=== PATIENT | female | born 1995 | race Caucasian/White ===

== ENCOUNTER → 2019-03-30 | Outpatient (CLI) | payer OTHER ==
--- NOTE | 2019-03-30 22:09 | MR ---
EXAMINATION TYPE: MR brain wo con DATE OF EXAM: 03/30/2019 COMPARISON: NONE HISTORY: Migraine TECHNIQUE: Multiplanar, multisequence imaging of the brain and brainstem is performed without IV cont rast. FINDINGS: Diffusion weighted images demonstrate no evidence of a recent infarct or other diffusion abnormality. There is no extraaxial fluid collection or significant white matter signal abnormality. The ventricu lar system and cisternal spaces are normal in size and appearance. The brain volume is age appropria te. Midline structures demonstrate normal morphology. The craniocervical junction appears within normal limits. Normal vascular flow voids are present. Incidental dominant right vertebral artery. Mild to m oderate mucosal thickening involving the maxillary sinuses bilaterally. Moderate mucosal thickening i nvolving the ethmoid sinuses bilaterally greatest anteriorly. Mild mucosal thickening involving the r ight frontal sinus. IMPRESSION: Chronic paranasal sinus disease as detailed above otherwise unremarkable study.
== END | disposition home or self-care (01) ==
LOC: RADMRIMAIN 15:44
PROVIDERS: ATTEND Family Medicine
DX: G43.909 Migraine, unspecified, not intractable, without status migrainosus (principal)
CPT/HCPCS: 70551

== ENCOUNTER → 2020-05-17 | Outpatient (CLI) | payer OTHER ==
--- NOTE | 2020-05-17 16:09 | US ---
EXAMINATION TYPE: Transabdominal DATE OF EXAM: 05/17/2020 8:02 AM COMPARISON: NONE CLINICAL HISTORY: Z36 confrim dates. confirm dates EXAM PERFORMED: Transvaginal (TV) and Transabdominal (TA) EXAM MEASUREMENTS: GESTATIONAL AGE / DATING Physician Established: Not yet established Dates by LMP: (9 weeks/2 days) EDC: 12/18/20 Dates by First Scan: No previous this is first scan Dates by Current Scan for: (8 weeks/5 days) EDC: 12/22/20 MATERNAL ANATOMY Uterus: 11.1 x 5.8 x 6.2cm Right Ovary: 2.3 x 1.7 x 1.4cm Left Ovary: 3.8 x 2.7 x 3.0cm Post CDS / Adnexa: appears wnl Presence of free fluid: no Presence of corpus luteal cyst: cystic area left ovary = 2.8 x 2.2 x 2.5cm Presence of subchorionic bleed: anechoic area posterior to gestational sac = 1.2 x 2.1cm GESTATION / SURVEY CRL: 2.1cm (8 weeks/5 days) Yolk Sac (normal less than 6mm): 0.3cm Heart Rate: 163 bpm Rhythm: Normal IUP: Viable IUP Date of LMP: 03/13/20 Beta HcG (if available): Not available at this time IMPRESSION: 1. Single intrauterine gestation estimated at 8 weeks 5 days gestation based on crown-rump length. Ca rdiac activity measures 163 bpm. 2. Chorionic hemorrhage may be adjacent to the gestational sac
== END | disposition home or self-care (01) ==
LOC: RADUSWWP 07:03
PROVIDERS: ATTEND Obstetrics & Gynecology
DX: Z36.9 Encounter for antenatal screening, unspecified (principal); Z3A.08 8 weeks gestation of pregnancy
CPT/HCPCS: 76801; 76817

== ENCOUNTER → 2020-07-28 | Outpatient (CLI) | payer OTHER ==
--- NOTE | 2020-07-31 07:46 | US ---
EXAMINATION TYPE: US OB anatomy transabd DATE OF EXAM: 07/28/2020 COMPARISON: 05/17/2020 HISTORY: 24-year-old female O36.62X0 2nd Trimester-large for dates . Assessment of anatomy TECHNIQUE: Transabdominal (TA) FINDINGS: EXAM MEASUREMENTS: GESTATIONAL AGE / DATING Physician Established: (19 weeks/4 days) EDC: 12/18/2020 Dates by LMP: (19 weeks/4 days) EDC: 12/18/2020 Dates by Current Scan for: (19 weeks/1 days) EDC: 12/21/2020 SURVEY IUP: Single PLACENTA: Posterior PREVIA: No previa JARETT: 12.7 cm Normal CERVICAL LENGTH (transabdominal: norm > 3.0cm): 3.4 cm BIOMETRY PRESENTATION: Vertex BPD: 4.4 cm 19 weeks / 3 days HC: 16.2 cm 19 weeks / 0 days AC: 13.2 cm 18 weeks / 5 days FL: 3.0 cm 19 weeks / 2 days ESTIMATED WEIGHT IN GRAMS: 268 grams ESTIMATED WEIGHT IN LBS/OZ: 0 lbs. 9 oz. WEIGHT PERCENTAGE BASED ON ESTABLISHED DATE: 17 % HC/AC: 1.2 Normal FL/AC: 23% HEART RATE: 146 bpm RHYTHM: Normal ANATOMY SEEN (within normal limits): Lateral Vent (< 1 cm) 0.6 cm Cisterna Magna (< 1.1 cm) 0.3 cm Nuchal Fold (< 0.6 cm) 0.3 cm Cerebellum (varies with age) 1.9 cm Choroid Plexus (bilateral) Midline Falx Cavus Septi Pellucidi Four Chamber Heart Outflow tracts: LVOT/RVOT Stomach Situs Nose / Lips Diaphragm Kidneys (bilateral) Bladder Cord Insert Three Vessel Cord Longitudinal Spine Transverse Spine Arms (bilateral) Legs (bilateral) IMPRESSION: 1. Single live intrauterine with established gestational age of 19 weeks 4 days by LMP. Cur rent ultrasound biometry remains concordant (19 weeks 1 day). 2. JARETT 12.7 cm. EFW percent 17%. Follow-up as clinically indicated. 3. The survey is complete. The visualized anatomy appears normal.
== END | disposition home or self-care (01) ==
LOC: RADUSWWP 16:22
PROVIDERS: ATTEND Obstetrics & Gynecology
DX: O36.62X0 Maternal care for excessive fetal growth, second trimester, not applicable or unspecified (principal); Z3A.19 19 weeks gestation of pregnancy
CPT/HCPCS: 76811

== ENCOUNTER 2020-12-19 05:14 | Inpatient (IN) | payer OTHER ==
[2020-12-19] MEDS ORDERED: METHYLERGONOVINE 0.2 MG/ML 1 ML AMP IM PRN (06:19)
[2020-12-19] MEDS ORDERED: CARBOPROST TROMETHAMINE 250 MCG/ML 1 ML AMP IM PRN (06:19)
[2020-12-19] MEDS ORDERED: TERBUTALINE 1 MG/ML VIAL SQ PRN (06:19)
[2020-12-19] MEDS ORDERED: OXYTOCIN 10 UNIT/ML 1 ML VIAL IM PRN (06:19)
[2020-12-19] MEDS ORDERED: LIDOCAINE 0.5% (PF) 5 MG/ML (50 ML SDV) SQ PRN (06:19)
[2020-12-19] MEDS ORDERED: OXYTOCIN 30 UNITS/500 ML NS 30 UNIT in SALINE 1 500ML.BAG IV SCH ×2 (06:30→20:30)
[2020-12-19] MEDS: LACTATED RINGERS 1,000 ML IV SCH ×2 (06:31→23:07)
[2020-12-19 06:49] LABS: Basophils # (A) 0.1 k/uL (0-0.2); Basophils % (A) 0 %; Eosinophils # (A) 0.3 k/uL (0-0.7); Eosinophils % (A) 2 %; HCT 37.4 % (34.0-46.0); Lymphocytes # (A) 1.9 k/uL (1.0-4.8); Lymphocytes % (A) 14 %; MCH 27.7 pg (25.0-35.0); MCHC 32.2 g/dL (31.0-37.0); MCV 86.2 fL (80.0-100.0); Mean Platelet Volume 9.6; Monocytes # (A) 0.5 k/uL (0-1.0); Monocytes % (A) 4 %; Neutrophils # (A) 10.2 k/uL (1.3-7.7); Neutrophils % (A) 78 %; Platelet Count 264 k/uL (150-450); Poikilocytosis Slight; RBC 4.33 m/uL (3.80-5.40); RDW 13.4 % (11.5-15.5); WBC 13.1 k/uL (3.8-10.6)
--- NOTE | 2020-12-19 07:26 | P.HPOB ---
History of Present Illness H&P Date: 12/19/20 Chief Complaint: SROM 25 year old presents at 40 weeks 1 day with spontaneous rupture of membranes at 430am. Her cervix is 1/80/-2. she is lottie every 6 minutes. heart tones 140 with moderate variability. Review of Systems All systems: negative Constitutional: Denies chills, Denies fever Eyes: denies blurred vision, denies pain Ears, nose, mouth and throat: Denies headache, Denies sore throat Cardiovascular: Denies chest pain, Denies shortness of breath Respiratory: Denies cough Gastrointestinal: Denies abdominal pain, Denies diarrhea, Denies nausea, Denies vomiting Genitourinary: Denies dysuria, Denies hematuria Musculoskeletal: Denies myalgias Integumentary: Denies pruritus, Denies rash Neurological: Denies numbness, Denies weakness Psychiatric: Denies anxiety, Denies depression Endocrine: Denies fatigue, Denies weight change Past Medical History Past Medical History: Supraventricular Tachycardia (SVT) History of Any Multi-Drug Resistant Organisms: None Reported Additional Past Surgical History / Comment(s): [place] teeth removal Past Anesthesia/Blood Transfusion Reactions: No Reported Reaction Past Psychological History: No Psychological Hx Reported Smoking Status: Never smoker Past Drug Use History: None Reported - Past Family History Mother Family Medical History: Asthma, Hyperlipidemia Medications and Allergies Home Medications Medication Instructions Recorded Confirmed Type Pnv No.95/Ferrous Fum/Folic AC 1 tab PO DAILY 12/19/20 12/19/20 History [ Multivitamin Tablet] Allergies Allergy/AdvReac Type Severity Reaction Status Date / Time No Known Allergies Allergy Verified 12/19/20 05:21 Exam Osteopathic Statement: *. No significant issues noted on an osteopathic structural exam other than those noted in the History and Physical/Consult. Vital Signs Temp Pulse Resp BP Pulse Ox 12/19/20 06:19 96.4 F L 108 H 16 153/72 97 Intake and Output 12/18/20 12/19/20 12/19/20 22:59 06:59 14:59 Other: Weight 84.822 kg Heart: RRR Lungs: CTAB Abdomen: soft,nontender Extremeties: neg casey's Results Result Diagrams: 12/19/20 06:20 Abnormal Lab Results - Last 24 Hours (Table) 10/26/21 Range/Units 06:20 WBC 13.1 H (3.8-10.6) k/uL Neutrophils # 10.2 H (1.3-7.7) k/uL Assessment and Plan (1) Spontaneous rupture of amniotic membranes Current Visit: Yes Status: Acute Code(s): [id number] - SNOMED Code(s): 473964481 (2) Normal labor Current Visit: Yes Status: Acute Code(s): O80 - ENCOUNTER FOR FULL-TERM UNCOMPLICATED DELIVERY; Z37.9 - OUTCOME OF DELIVERY, UNSPECIFIED SNOMED Code(s): 90157165 Plan: 1. admit to [facility] 2. expectant management. 3. anticipate normal vaginal delivery
[2020-12-19] MEDS: BUTORPHANOL 1 MG/ML 1 ML VIAL IV PRN ×2 (12:06→14:16)
[2020-12-19] MEDS ORDERED: ROPIVACAINE 5MG/ML 20ML VIAL ONE (16:15)
[2020-12-19] MEDS ORDERED: SODIUM CHLORIDE 0.9% 100 ML BAG ONE (16:15)
[2020-12-19] MEDS ORDERED: fentaNYL (PF) 50 MCG/ML 5 ML AMP ONE (16:15)
[2020-12-19] MEDS ORDERED: ROPIVACAINE 100 MG, fentaNYL (PF). 200 MCG in SODIUM CHLORIDE 0.9% 76 ML EPIDURAL ONE (16:51)
[2020-12-19] MEDS ORDERED: HYDROCORTISONE 2.5% RECTAL CREAM 30 GM TUBE RECTAL PRN (20:23)
[2020-12-19] MEDS ORDERED: diphenhydrAMINE 25 MG CAP PO PRN (20:23)
[2020-12-19] MEDS ORDERED: diphenhydrAMINE 50 MG/ML 1 ML VIAL IVP PRN ×2 (20:23)
[2020-12-19] MEDS ORDERED: ACETAMINOPHEN TAB 325 MG TAB PO PRN (20:23)
[2020-12-19] MEDS ORDERED: SIMETHICONE 80 MG CHEWABLE PO PRN (20:23)
[2020-12-19] MEDS ORDERED: LANOLIN CREAM 5 GM TUBE TOPICAL PRN (20:23)
[2020-12-19] MEDS ORDERED: BENZOCAINE/MENTHOL SPRAY 1 GM/SPRAY AEROSOL TOPICAL PRN (20:23)
[2020-12-19] MEDS ORDERED: diphenhydrAMINE 50 MG CAP PO PRN (20:23)
[2020-12-19] MEDS ORDERED: ZOLPIDEM 5 MG TAB PO PRN (20:23)
[2020-12-19] MEDS: IBUPROFEN 600 MG TAB PO PRN (20:37)
[2020-12-19] MEDS ORDERED: BENZOCAINE/MENTHOL SPRAY 1 GM/SPRAY AEROSOL TOPICAL ONE (20:38)
[2020-12-20] MEDS: IBUPROFEN 600 MG TAB PO PRN ×4 (03:24→23:54)
[2020-12-20 07:53] LABS: Basophils % (A) 0 %; Eosinophils # (A) 0.2 k/uL (0-0.7); Eosinophils % (A) 1 %; HCT 32.5 % (34.0-46.0); HGB 10.5 gm/dL (11.4-16.0); Lymphocytes # (A) 1.7 k/uL (1.0-4.8); Lymphocytes % (A) 11 %; MCHC 32.3 g/dL (31.0-37.0); MCV 86.9 fL (80.0-100.0); Mean Platelet Volume 9.7; Monocytes # (A) 0.7 k/uL (0-1.0); Monocytes % (A) 5 %; Neutrophils # (A) 12.7 k/uL (1.3-7.7); Neutrophils % (A) 82 %; Platelet Count 228 k/uL (150-450); RBC 3.74 m/uL (3.80-5.40); RDW 13.7 % (11.5-15.5); WBC 15.5 k/uL (3.8-10.6)
--- NOTE | 2020-12-20 08:47 | P.PROBDLV ---
Vaginal Delivery Note - . Vaginal Delivery Note: 25 year old presents at 40 weeks 1 day with spontaneous rupture of membranes at 430am. Her cervix is 1/80/-2. she is lottie every 6 minutes. heart tones 140 with moderate variability and reactive. After a few hours of contractions every 6 minutes her cervix was not making change so, through shared decision-making, Pitocin augmentation was started. When she was about 5 cm she got an epidural and was comfortable. Her cervix was completely dilated a t 1905. She pushed, delivered a viable female over intact perineum under epidural anesthesia at 1928. Head delivered OA, nuchal cord 1 easily reduced, anterior shoulder delivered gentle targets followed by posterior shoulder and rest of body. Nose and mouth bulb suctioned, cord clamped and cut, placed on mother's abdomen. Apgars 7, 8, weight 6 lbs. 7 oz. Placenta delivered spontaneously, intact with three-vessel cord at 1930. Vagina, cervix, and perineum were inspected. Left labial laceration going into a first-degree laceration was repaired with 3-0 Vicryl. Estimated blood loss 200 mL. Mother and baby in stable condition.
--- NOTE | 2020-12-20 08:48 | P.PNOBGVD ---
Subjective - Subjective Principal diagnosis: Status post normal vaginal delivery day #1 Interval history: Patient seen and examined. Denies nausea, vomiting, chest pain, shortness of breath or any calf pain. Patient reports: Reports appetite normal, Reports voiding normally, Reports pain well controlled, Reports ambulating normally [place]: doing well Objective - Latest Vital Signs Latest vital signs: Vital Signs Temp Pulse Resp BP Pulse Ox 12/20/20 03:32 97.5 F L 99 16 102/79 99 12/20/20 00:00 98.1 F 70 16 121/75 98 12/19/20 21:41 97.1 F L 84 16 124/62 12/19/20 21:11 96.4 F L 75 16 128/58 12/19/20 20:41 96.8 F L 116 H 16 127/61 12/19/20 20:26 96.7 F L 110 H 16 130/70 12/19/20 20:11 96.7 F L 99 16 121/58 12/19/20 19:56 97.4 F L 120 H 16 122/57 12/19/20 19:41 97.0 F L 115 H 18 126/55 Intake and Output 12/19/20 12/20/20 12/20/20 22:59 06:59 14:59 Intake Total 167 Balance 167 Intake: Intake, IV Titration 167 Amount Oxytocin 30 Units/500 ml 167 Ns 30 unit In Saline 1 500ml.bag @ Per Protocol IV .Q0M [facility] Rx#:[id number] Other: # Voids 1 0 - Exam Lungs: bilateral: normal Chest: Normal S1, Normal S2 Extremities: Present: normal Abdomen: Present: normal appearance, soft Uterus: Present: normal, firm - Labs Labs: Abnormal Lab Results - Last 24 Hours (Table) 12/20/20 Range/Units 07:40 WBC 15.5 H (3.8-10.6) k/uL RBC 3.74 L (3.80-5.40) m/uL Hgb 10.5 L (11.4-16.0) gm/dL Hct 32.5 L (34.0-46.0) % Neutrophils # 12.7 H (1.3-7.7) k/uL Assessment and Plan (1) Spontaneous rupture of amniotic membranes Current Visit: Yes Status: Resolved Code(s): TYY1528 - SNOMED Code(s): 502135138 (2) Normal labor Current Visit: Yes Status: Resolved Code(s): O80 - ENCOUNTER FOR FULL-TERM UNCOMPLICATED DELIVERY; Z37.9 - OUTCOME OF DELIVERY, UNSPECIFIED SNOMED Code(s): 68627931 (3) Status post normal vaginal delivery Current Visit: Yes Status: Acute Code(s): VUU3814 - SNOMED Code(s): 297714639 Plan: 1. Continue care
[2020-12-20] MEDS: SENNOSIDES-DOCUSATE SODIUM 1 EACH TAB PO SCH ×2 (08:58→21:20)
[2020-12-21 07:41] VITALS: BP 115/81; PULSE 102; RESP 17; TEMP 98.6
--- NOTE | 2020-12-21 07:44 | P.DS ---
Providers Date of admission: 12/19/20 06:05 Expected date of discharge: 12/21/20 Attending physician: Daphnie Armas Primary care physician: Stated None - Discharge Diagnosis(es) (1) Spontaneous rupture of amniotic membranes Current Visit: Yes Status: Resolved (2) Normal labor Current Visit: Yes Status: Resolved (3) Status post normal vaginal delivery Current Visit: Yes Status: Acute Hospital Course: Patient presented with spontaneous rupture of membranes. She underwent Pitocin augmentation and had a normal vaginal delivery. course was uncomplicated. She denies nausea, vomiting, chest pain, shortness of breath or any calf pain. She'll be discharged home day #2 in stable condition to follow-up with me in 6 weeks. Plan - Discharge Summary New Discharge Prescriptions: New Ibuprofen [Motrin] 600 mg PO Q6HR PRN #30 tab PRN Reason: Mild Pain (Scale 1 To 3) No Action Pnv No.95/Ferrous Fum/Folic AC [ Multivitamin Tablet] 1 tab PO DAILY Discharge Medication List Pnv No.95/Ferrous Fum/Folic AC [ Multivitamin Tablet] 1 tab PO DAILY 12/19/20 [History] Ibuprofen [Motrin] 600 mg PO Q6HR PRN #30 tab 12/21/20 [Rx] Follow up Appointment(s)/Referral(s): Daphnie Armas DO [Doctor of Osteopathic Medicine] - 01/30/21 3:45 pm Discharge Disposition: HOME SELF-CARE
[2020-12-21] MEDS: IBUPROFEN 600 MG TAB PO PRN (07:45)
[2020-12-21] MEDS: SENNOSIDES-DOCUSATE SODIUM 1 EACH TAB PO SCH (08:21)
== END 2020-12-21 11:45 | disposition home or self-care (01) | DRG 807 ==
LOC: FBPOP 05:14 → 4FBP 06:05
PROVIDERS: ADMIT Obstetrics & Gynecology; ATTEND Obstetrics & Gynecology
PROC: 10E0XZZ Delivery of Products of Conception, External Approach (ICD-10-PCS; principal; 2020-12-19)
PROC: 0HQ9XZZ Repair Perineum Skin, External Approach (ICD-10-PCS; 2020-12-19)
DX: O69.81X0 Labor and delivery complicated by cord around neck, without compression, not applicable or unspecified (principal); Z37.0 Single live birth; O70.0 First degree perineal laceration during delivery; Z3A.40 40 weeks gestation of pregnancy; Z82.5 Family history of asthma and other chronic lower respiratory diseases; Z83.438 Family history of other disorder of lipoprotein metabolism and other lipidemia
CPT/HCPCS: 59025; 84112; 85025; 86850; 86900; 86901; 99213

== ENCOUNTER 2021-04-21 18:26 | Emergency (ER) | payer OTHER ==
[2021-04-21 18:36] VITALS: TEMP 98.8
--- NOTE | 2021-04-21 20:10 | XR ---
EXAMINATION TYPE: XR chest 2V DATE OF EXAM: 04/21/2021 7:50 PM COMPARISON:Chest radiographs from TECHNIQUE: XR chest 2V Frontal and lateral views of the chest. CLINICAL INDICATION:Female, 25 years old with history of difficulty breathing; FINDINGS: Lungs/Pleura: There is no evidence of pleural effusion, focal consolidation, or pneumothorax. Pulmonary vascularity: Unremarkable. Heart/mediastinum: Cardiomediastinal silhouette is unremarkable. Musculoskeletal: No acute osseous pathology. IMPRESSION: No acute cardiopulmonary disease/process.
[2021-04-21 20:36] LABS: Basophils % (A) 0 %; Eosinophils # (A) 0.3 k/uL (0-0.7); Eosinophils % (A) 2 %; HCT 39.3 % (34.0-46.0); HGB 12.6 gm/dL (11.4-16.0); Lymphocytes # (A) 1.7 k/uL (1.0-4.8); Lymphocytes % (A) 10 %; MCH 27.1 pg (25.0-35.0); MCHC 32.1 g/dL (31.0-37.0); MCV 84.3 fL (80.0-100.0); Mean Platelet Volume 8.7; Monocytes # (A) 0.6 k/uL (0-1.0); Monocytes % (A) 3 %; Neutrophils # (A) 14.7 k/uL (1.3-7.7); Neutrophils % (A) 84 %; Platelet Count 353 k/uL (150-450); RBC 4.66 m/uL (3.80-5.40); RDW 14.9 % (11.5-15.5); WBC 17.6 k/uL (3.8-10.6)
--- NOTE | 2021-04-21 20:40 | ED ---
General Adult HPI - General Chief complaint: Upper Respiratory Infection Stated complaint: JENARO Time Seen by Provider: 04/21/21 19:16 Source: patient Mode of arrival: ambulatory Limitations: no limitations - History of Present Illness Initial comments: Patient is a 25-year-old female with a past medical history of supraventricular tachycardia who presents to the emergency department with a chief complaint of dyspnea and chest tightness x 1 week. Patient reports she was seen at her primary care office 1 week ago where she tested negative for influenza. She reports she has continued to have symptoms which worsened last night. Patient states she had fever and chills last night at 102F which responded to Tylenol. Patient also reports palpitations. Patient stopped taking metoprolol during her per her e d tech and has not resumed it since. Patient denies personal or family history of blood clots or pulmonary embolism. She is on oral contraceptive pill that she started a couple months ago. Patient denies weakness, headache, upper respiratory symptoms, abdominal pain, nausea, vomiting, and bilateral leg pain. The triage note does mention congestion, however patient reports that she is only congested from crying. She denies known sick contact exposure. - Related Data Home Medications Medication Instructions Recorded Confirmed Pnv No.95/Ferrous Fum/Folic AC 1 tab PO DAILY 12/19/20 12/19/20 [ Multivitamin Tablet] Previous Rx's Medication Instructions Recorded Ibuprofen [Motrin] 600 mg PO Q6HR PRN #30 tab 12/21/20 Azithromycin [Zithromax] 1 pack PO DIRECTED #1 packet 04/21/21 Allergies Allergy/AdvReac Type Severity Reaction Status Date / Time No Known Allergies Allergy Verified 04/21/21 18:36 Review of Systems ROS Statement: Those systems with pertinent positive or pertinent negative responses have been documented in the HPI. ROS Other: All systems not noted in ROS Statement are negative. Past Medical History Past Medical History: Supraventricular Tachycardia (SVT) History of Any Multi-Drug Resistant Organisms: None Reported Additional Past Surgical History / Comment(s): [place] teeth removal Past Anesthesia/Blood Transfusion Reactions: No Reported Reaction Past Psychological History: No Psychological Hx Reported Smoking Status: Never smoker Past Alcohol Use History: None Reported Past Drug Use History: None Reported - Past Family History Mother Family Medical History: Asthma, Hyperlipidemia General Exam Limitations: no limitations General appearance: alert, in no apparent distress Head exam: Present: atraumatic, normocephalic, normal inspection Eye exam: Present: normal appearance, PERRL, EOMI. Absent: scleral icterus, conjunctival injection, periorbital swelling Neck exam: Present: normal inspection, full ROM Respiratory exam: Present: normal lung sounds bilaterally. Absent: respiratory distress, wheezes, rales, rhonchi, stridor Cardiovascular Exam: Present: normal rhythm, tachycardia, normal heart sounds GI/Abdominal exam: Present: soft. Absent: distended, tenderness, guarding, rebound, rigid Extremities exam: Present: normal inspection, full ROM, calf tenderness (left ), other (Negative Homans sign bilaterally) Neurological exam: Present: alert, oriented X3, CN II-XII intact Psychiatric exam: Present: normal affect, normal mood Skin exam: Present: warm, dry, intact, normal color. Absent: rash Course Vital Signs 04/21/21 04/21/21 04/21/21 18:34 21:25 21:36 Temperature 98.8 F Pulse Rate 122 H 78 Respiratory 24 18 18 Rate Blood Pressure 130/84 115/78 O2 Sat by Pulse 100 100 Oximetry EKG Findings - EKG Comments: EKG Findings:: EKG taken at 20:17. Sinus rhythm, possible right ventricular conduction delay. Ventricular rate 96. MD interval 152. QRS duration 85. QTC 373 Medical Decision Making - Medical Decision Making This is a 25-year-old female who presents with dyspnea and chest tightness. Thorough history and examination were performed. EKG reveals sinus rhythm with possible right ventricular conduction delay. CBC reveals leukocytosis with a left shift at 17.6 and 14.7 respectively. D-dimer and troponin are within normal limits. Patient is covid-19 negative. Chest x-ray reveals no acute cardiopulmonary disease/process. Venous ultrasound of the left lower extremity is negative for DVT. On reevaluation patient is resting in bed. Case discussed with patient. Patient reports she has an appointment with e d tech on Friday. I recommended that she informs e d tech about her emergency visit today and to follow-up with her primary care provider for further evaluation. I will discharge with a Z-Jose Angel. Return parameters discussed. Patient verbalizes understanding and is agreeable to plan. Dr. Muro is my attending. - Lab Data Result diagrams: 04/21/21 20:22 04/21/21 20:22 Lab Results 04/21/21 04/21/21 04/21/21 Range/Units 18:40 20:22 20:22 WBC 17.6 H (3.8-10.6) k/uL RBC 4.66 (3.80-5.40) m/uL Hgb 12.6 (11.4-16.0) gm/dL Hct 39.3 (34.0-46.0) % MCV 84.3 (80.0-100.0) fL MCH 27.1 (25.0-35.0) pg MCHC 32.1 (31.0-37.0) g/dL RDW 14.9 (11.5-15.5) % Plt Count 353 (150-450) k/uL MPV 8.7 Neutrophils % 84 % Lymphocytes % 10 % Monocytes % 3 % Eosinophils % 2 % Basophils % 0 % Neutrophils # 14.7 H (1.3-7.7) k/uL Lymphocytes # 1.7 (1.0-4.8) k/uL Monocytes # 0.6 (0-1.0) k/uL Eosinophils # 0.3 (0-0.7) k/uL Basophils # 0.0 (0-0.2) k/uL PT 10.6 (9.0-12.0) sec INR 1.0 (<1.2) APTT 27.6 (22.0-30.0) sec D-Dimer 0.38 (<0.60) mg/L FEU Sodium (137-145) mmol/L Potassium (3.5-5.1) mmol/L Chloride (98-107) mmol/L Carbon Dioxide (22-30) mmol/L Anion Gap mmol/L BUN (7-17) mg/dL Creatinine (0.52-1.04) mg/dL Est GFR (CKD-EPI)AfAm (>60 ml/min/1.73 sqM) Est GFR (CKD-EPI)NonAf (>60 ml/min/1.73 sqM) Glucose (74-99) mg/dL Plasma Lactic Acid Brody (0.7-2.0) mmol/L Calcium (8.4-10.2) mg/dL Total Bilirubin (0.2-1.3) mg/dL AST (14-36) U/L ALT (4-34) U/L Alkaline Phosphatase (38-126) U/L Troponin I (0.000-0.034) ng/mL Total Protein (6.3-8.2) g/dL Albumin (3.5-5.0) g/dL HCG, Quant mIU/mL Coronavirus (PCR) Not Detected (Not Detectd) 04/21/21 04/21/21 04/21/21 Range/Units 20:22 20:22 20:22 WBC (3.8-10.6) k/uL RBC (3.80-5.40) m/uL Hgb (11.4-16.0) gm/dL Hct (34.0-46.0) % MCV (80.0-100.0) fL MCH (25.0-35.0) pg MCHC (31.0-37.0) g/dL RDW (11.5-15.5) % Plt Count (150-450) k/uL MPV Neutrophils % % Lymphocytes % % Monocytes % % Eosinophils % % Basophils % % Neutrophils # (1.3-7.7) k/uL Lymphocytes # (1.0-4.8) k/uL Monocytes # (0-1.0) k/uL Eosinophils # (0-0.7) k/uL Basophils # (0-0.2) k/uL PT (9.0-12.0) sec INR (<1.2) APTT (22.0-30.0) sec D-Dimer (<0.60) mg/L FEU Sodium 138 (137-145) mmol/L Potassium 4.0 (3.5-5.1) mmol/L Chloride 106 (98-107) mmol/L Carbon Dioxide 21 L (22-30) mmol/L Anion Gap 11 mmol/L BUN 11 (7-17) mg/dL Creatinine 0.70 (0.52-1.04) mg/dL Est GFR (CKD-EPI)AfAm >90 (>60 ml/min/1.73 sqM) Est GFR (CKD-EPI)NonAf >90 (>60 ml/min/1.73 sqM) Glucose 108 H (74-99) mg/dL Plasma Lactic Acid Brody 1.7 (0.7-2.0) mmol/L Calcium 9.6 (8.4-10.2) mg/dL Total Bilirubin 0.6 (0.2-1.3) mg/dL AST 23 (14-36) U/L ALT 21 (4-34) U/L Alkaline Phosphatase 95 (38-126) U/L Troponin I <0.012 (0.000-0.034) ng/mL Total Protein 7.3 (6.3-8.2) g/dL Albumin 4.3 (3.5-5.0) g/dL HCG, Quant mIU/mL Coronavirus (PCR) (Not Detectd) 04/21/21 Range/Units 20:22 WBC (3.8-10.6) k/uL RBC (3.80-5.40) m/uL Hgb (11.4-16.0) gm/dL Hct (34.0-46.0) % MCV (80.0-100.0) fL MCH (25.0-35.0) pg MCHC (31.0-37.0) g/dL RDW (11.5-15.5) % Plt Count (150-450) k/uL MPV Neutrophils % % Lymphocytes % % Monocytes % % Eosinophils % % Basophils % % Neutrophils # (1.3-7.7) k/uL Lymphocytes # (1.0-4.8) k/uL Monocytes # (0-1.0) k/uL Eosinophils # (0-0.7) k/uL Basophils # (0-0.2) k/uL PT (9.0-12.0) sec INR (<1.2) APTT (22.0-30.0) sec D-Dimer (<0.60) mg/L FEU Sodium (137-145) mmol/L Potassium (3.5-5.1) mmol/L Chloride (98-107) mmol/L Carbon Dioxide (22-30) mmol/L Anion Gap mmol/L BUN (7-17) mg/dL Creatinine (0.52-1.04) mg/dL Est GFR (CKD-EPI)AfAm (>60 ml/min/1.73 sqM) Est GFR (CKD-EPI)NonAf (>60 ml/min/1.73 sqM) Glucose (74-99) mg/dL Plasma Lactic Acid Brody (0.7-2.0) mmol/L Calcium (8.4-10.2) mg/dL Total Bilirubin (0.2-1.3) mg/dL AST (14-36) U/L ALT (4-34) U/L Alkaline Phosphatase (38-126) U/L Troponin I (0.000-0.034) ng/mL Total Protein (6.3-8.2) g/dL Albumin (3.5-5.0) g/dL HCG, Quant <2.4 mIU/mL Coronavirus (PCR) (Not Detectd) Disposition Clinical Impression: Dyspnea Disposition: HOME SELF-CARE Condition: Fair Instructions (If sedation given, give patient instructions): Dyspnea (ED) Additional Instructions: Take medication as prescribed. Follow-up with primary care provider and e d tech in one to 2 days. Return to the ER if you experience new, concerning, or worsening symptoms. Is patient prescribed a controlled substance at d/c from ED?: No Referrals: Josie Gonzales DO [Primary Care Provider] - 1-2 days Time of Disposition: 22:49
[2021-04-21 20:46] LABS: ALT 21 U/L (4-34); AST 23 U/L (14-36); African American GFR (CKD) >90 (>60 ml/min/1.73 sqM); Albumin 4.3 g/dL (3.5-5.0); Alkaline Phosphatase 95 U/L (38-126); Anion Gap 11 mmol/L; Blood Urea Nitrogen 11 mg/dL (7-17); Calcium 9.6 mg/dL (8.4-10.2); Carbon Dioxide 21 mmol/L (22-30); Chloride 106 mmol/L (98-107); Glucose 108 mg/dL (74-99); Non-African American GFR(CKD) >90 (>60 ml/min/1.73 sqM); Sodium 138 mmol/L (137-145); Total Bilirubin 0.6 mg/dL (0.2-1.3); Total Protein 7.3 g/dL (6.3-8.2)
[2021-04-21 20:49] LABS: Partial Thromboplastin Time 27.6 sec (22.0-30.0); Prothrombin Time 10.6 sec (9.0-12.0)
[2021-04-21 21:27] VITALS: RESP 18
--- NOTE | 2021-04-21 22:19 | US ---
EXAMINATION TYPE: US venous doppler duplex LE LT DATE OF EXAM: 04/21/2021 9:44 PM COMPARISON: NONE CLINICAL HISTORY: dvt?. EC patient with JENARO x 1 week; fever yesterday, had COVID February 2021; left l eg tenderness upon EC physical exam. SIDE PERFORMED: Left TECHNIQUE: The lower extremity deep venous system is examined utilizing real time linear array sonog richard with graded compression, doppler sonography and color-flow sonography. VESSELS IMAGED: Common Femoral Vein Deep Femoral Vein Greater Saphenous Vein * Femoral Vein Popliteal Vein Small Saphenous Vein * Proximal Calf Veins (* superficial vessels) Left Leg: Negative for DVT.: Grayscale, color doppler, spectral doppler imaging performed of the de ep veins of the lower extremities. There is normal flow, compressibility, vascular waveforms. IMPRESSION: No evidence of deep vein thrombosis of the left lower extremity.
[2021-04-21 22:32] VITALS: BP 115/78; PULSE 78
== END 2021-04-21 23:04 | disposition home or self-care (01) ==
LOC: EC 18:26
DX: R06.00 Dyspnea, unspecified (principal); Z86.79 Personal history of other diseases of the circulatory system; Z20.822 Contact with and (suspected) exposure to COVID-19
CPT/HCPCS: 36415; 71046; 80053; 83605; 84484; 84702; 85025; 85379; 85610; 85730; 87635; 93005; 99285